=== PATIENT | male | born 1975 | race Caucasian/White ===

== ENCOUNTER 2016-09-27 12:11 | Inpatient (IN) | payer MEDICAID ==
--- NOTE | ~2016-09-27 | PN ---
Unit #: [id number] #: [id number] Patient: RADHA AGUILAR [id number] [facility] [address] [place] [address] [id number] I MR#: [id number] NAME: RADHA AGUILAR ROOM: P180 Age: 41 Sex: M Admission Date: 09/27/2016 : 1975 Attending Physician: Yoandy Sheridan M.D. Admitting Physician: Yoandy Sheridan M.D. Primary Care Physician: Primary Care Physician Jackeline MONTES DE OCA NOTES DATE 09/30/2016 DISCUSSION Mr. Aguilar is a 41-year-old, white male who was seen today and chart was reviewed and case was discussed with the staff. He has been anxious, withdrawn and rather seclusive to himself. Meanwhile, he has been cooperative with treatment recommendations and has been taking medications and tolerating them fairly well with no reported side effects. MENTAL STATUS EXAM Middle-aged white male who was casually dressed with fair personal hygiene, appears to be in no acute distress or discomfort. He was awake and alert on interaction with intact orientation to time, place and person. His mood was anxious with congruent affect. His speech was slow and goal directed. He denies any suicidal or homicidal ideation. His insight and judgement remains slightly impaired. TREATMENT PLAN We will continue him on his current medications and treatment protocol. We will monitor his response to the medications and will make further adjustments as needed. Dictated by... Alphonse Whitehead/jameson TD: 10/01/2016 02:10 JOB #: [id number] Unit #: [id number] #: [id number] Patient: RADHA AGUILAR HIRAL PROGRESS NOTES X Yoandy Sheridan MD PROGRESS NOTE
--- NOTE | ~2016-09-27 | PN ---
Unit #: [id number] #: [id number] Patient: RADHA AGUILAR [id number] [facility] [address] [place] [address] [id number] I MR#: [id number] NAME: RADHA AGUILAR ROOM: 80 Age: 41 Sex: M Admission Date: 09/27/2016 : 1975 Attending Physician: Yoandy Sheridan M.D. Admitting Physician: Yoandy Sheridan M.D. Primary Care Physician: Primary Care Physician Jackeline BLACKMAN PROGRESS NOTES DATE September 29, 2016 DISCUSSION Mr. Aguilar is a 41-year-old white male, who was seen today and chart was reviewed and the case was discussed with the staff. He has been anxious, withdrawn, and rather seclusive to himself. Meanwhile, he has been cooperative with the treatment recommendations and he has been taking the medications and tolerating them fairly well. MENTAL STATUS EXAMINATION Middle-aged white male, who was casually dressed with fair personal hygiene and appears to be in no acute distress or discomfort. He was awake and alert on interaction with intact orientation. His mood is anxious and depressed with a congruent affect. His speech is slow and goal-directed. He denies any suicidal or homicidal ideations. His insight and judgment remain slightly impaired. TREATMENT PLAN 1. We will continue him on his current medications and treatment protocol, and will monitor his response to the medications, and make further adjustments as needed. 2. We will continue to followup. Dictated by... Alphonse Whitehead/monique TD: 09/30/2016 08:17 JOB #: [id number] Unit #: [id number] #: [id number] Patient: RADHA AGUILAR PROGRESS NOTES X Yoandy Sheridan MD PROGRESS NOTE
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
--- NOTE | ~2016-09-27 | HP ---
Unit #: [id number] #: [id number] Patient: RADHA AGUILAR [id number] [facility] [address] [place] [address] [id number] I MR#: [id number] NAME: RADHA AGUILAR ROOM: P180 Age: 41 Sex: M Admission Date: 09/27/2016 : 1975 Attending Physician: Yoandy Sheridan M.D. Admitting Physician: Yoandy Sheridan M.D. Primary Care Physician: Primary Care Physician No HISTORY AND PHYSICAL HISTORY OF PRESENT ILLNESS Ms. Aguilar is a 41 year old admitted to [facility] because of his continued abuse of alcohol. He has had other admissions to this facility for treatment of the same. PAST MEDICAL HISTORY 1. Long history of alcohol abuse. 2. High blood pressure. PAST SURGICAL HISTORY Nothing reported. ALLERGIES No known drug allergies. SOCIAL HISTORY Smokes 2 packs per day. Drinks up to a case of been on a daily basis and denies illicit drug use. FAMILY HISTORY Medically noncontributory. REVIEW OF SYSTEMS CONSTITUTIONAL: No fever or chills. HEENT: Denies any sore throat, ear pain or runny nose. CARDIOVASCULAR: Denies chest pain, irregular heart rhythm or palpitations. CHEST: Denies shortness of breath or cough. No hemoptysis. GASTROINTESTINAL: Denies nausea, vomiting, diarrhea or chronic constipation. ENDOCRINE: Denies history of increased thirst or urination. No recent significant weight loss or gain. GENITOURINARY: Denies dysuria, frequency, or hematuria. SKIN: Denies any rashes. HEMATOLOGIC: Denies history of increased bleeding or bruising. MUSCULOSKELETAL: Denies any hot, swollen joints. No generalized muscle pain. NEUROLOGIC: Denies problems with vision or speech. No frequent, severe headaches. No numbness, tingling or weakness in any extremities. Denies loss of bladder or bowel control. CURRENT MEDICATIONS 1. Detox protocol. 2. Tenormin 25 mg q. day. Unit #: [id number] #: [id number] Patient: RADHA AGUILAR 3. Geodon 60 mg q.h.s. 4. BuSpar 15 mg b.i.d. PHYSICAL EXAMINATION GENERAL: Alert, well nourished. No apparent distress. VITAL SIGNS: Blood pressure 124/88, heart rate 100, respirations 16, and temperature 98.6. WEIGHT: 164. HEIGHT: 5 feet 8 inches. SKIN: Warm and dry without rash or lesion. HEENT: Normocephalic. TMs not viewed. Oral and nasal passages clear. Conjunctivae clear. PERRLA. EOMs intact. NECK: Supple without lymphadenopathy or thyromegaly. HEART: Regular rate and rhythm without murmur. LUNGS: Clear. ABDOMEN: Soft, nontender. : Not done. EXTREMITIES: No evidence of cyanosis, clubbing or edema. Moves all without focal deficit. NEUROLOGICAL: Grossly within normal limits. Cranial Nerves: II: Visual hart are intact. III, IV AND : Extraocular movements are intact. Pupils are equal, round and reactive to light. V: Facial sensation is grossly normal. VII: Facial movements and expression are normal. VIII: Auditory acuity grossly intact. IX, X: Uvula is midline. Phonation is normal. XI: Patient shrugs shoulders and turns head normally. XII: Tongue protrudes in the midline. Sensory and Motor Function: Sensory and motor sensation is grossly normal. Motor: moves all extremities well. Coordination: Gait is normal. Deep Tendon Reflexes: Intact. IMPRESSION Psychiatric admission. RECOMMENDATIONS PSYCHIATRIC: Per psychiatrist. MEDICAL: I see no contraindication to participate in this facility's activities. MEDICAL PROGNOSIS Good. MEDICAL CONDITION Stable. Dictated by... Swathi Schmitz P.A.-C. for Alphonse De La Vega/valerie TD: 09/28/2016 09:52 JOB #: [id number] Unit #: [id number] #: [id number] Patient: RADHA AGUILAR HISTORY AND PHYSICAL X Swathi Schmitz HISTORY AND PHYSICAL
--- NOTE | ~2016-09-27 | PN ---
Unit #: [id number] #: [id number] Patient: RADHA AGUILAR [id number] [facility] [address] [place] [address] [id number] MR#: [id number] NAME: RADHA AGUILAR ROOM: [facility] Age: 41 Sex: M Admission Date: 09/27/2016 : 1975 Attending Physician: Yoandy Sheridan M.D. Admitting Physician: Yoandy Sheridan M.D. Primary Care Physician: Primary Care Physician Jackeline MONTES DE OCA NOTES DATE OF SERVICE 09/27/2016 DISCUSSION Mr. Aguilar is a 41-year-old white male who was seen today. Chart was reviewed and case was discussed with staff. He was seen to be anxious, withdrawn, restless, and reports persistent depressive symptoms. Meanwhile, he has been taking the medications and tolerating them fairly well with no reported side effects. MENTAL STATUS EXAMINATION Middle-aged white male who is casually dressed with fair personal hygiene, appears to be in slight distress and discomfort. He was awake and alert on interaction with intact orientation. His mood is anxious and depressed with congruent affect. His speech is slow and goal-directed. He reports having suicidal ideation but denies any homicidal ideations and also denies any auditory or visual hallucinations. His insight and judgment remain slightly impaired. TREATMENT PLAN 1. We will continue him on his current medications and treatment protocol. We will monitor his response to the medications and make further adjustments as needed. 2. We will continue to follow up. Dictated by... Alphonse Whitehead/valerie TD: 09/29/2016 09:52 JOB #: [id number] Unit #: [id number] #: [id number] Patient: RADHA AGUILAR PEAELOY PROGRESS NOTES X Yoandy Sheridan MD PROGRESS NOTE
--- NOTE | ~2016-09-27 | DS ---
Unit #: [id number] #: [id number] Patient: [facility]AV[facility] [id number] [facility] [address] [place] [address] [id number] I MR#: [id number] NAME: RADHA XAVIER ROOM: [facility] Age: 41 Sex: M Admission Date: 09/27/2016 : 1975 Discharge Date: Attending Physician: Yoandy Sheridan M.D. Primary Care Physician: Primary Care Physician No DISCHARGE SUMMARY IDENTIFYING DATA Mr. Xavier is a 41-year-old single white male who is known to us from previous encounter, was self-referred back to the hospital. DISCHARGE DIAGNOSES Psychiatric: Alcohol dependence, moderate and acute withdrawals; bipolar disorder, most recent episode depressed, recurrent, moderate, without psychotic features. Medical: Hypertension. Stressors: Moderate psychosocial stressors. HISTORY OF PRESENT ILLNESS Please see initial psychiatric evaluation for details. PAST PSYCHIATRIC HISTORY Please see initial psychiatric evaluation for details. PAST MEDICAL HISTORY Please see initial psychiatric evaluation for details. HOSPITAL COURSE The patient was [facility] and was oriented to the hospital environment. Routine p.r.n. medications were initiated, and he was started back on his home medications and medications were adjusted and he was closely monitored. He was taking the medications regularly and was tolerating them fairly well and was able to come out of the detox without any complications and was willing to continue treatment on an outpatient basis and as such, it was decided that he will be discharged home and will continue treatment on an outpatient basis. DISCHARGE MEDICATIONS Geodon 60 mg a day for bipolar and BuSpar 15 mg b.i.d. for anxiety. DISCHARGE CONDITION Stable. PROGNOSIS Fair. Dictated by... Yoandy Sheridan M.D. Unit #: [id number] #: [id number] Patient: RADHA XAVIER IAA/modl TD: 10/01/2016 07:25 JOB #: [id number] DISCHARGE SUMMARY X Yoandy Sheridan MD X DISCHARGE SUMMARY
[2016-09-27 16:43] LABS: URINE APPEARANCE CLEAR; URINE BILIRUBIN NEG (NEG); URINE BLOOD NEG (NEG); URINE COLOR YELLOW; URINE GLUCOSE NEG (NEG); URINE KETONE NEG (NEG); URINE LEUKOCYTE ESTERASE NEG (NEG); URINE NITRATE NEG (NEG); URINE PROTEIN NEG (NEG); URINE SPECIFIC GRAVITY 1.016 (1.003-1.035); URINE UROBILINOGEN 0.2 MG/DL (NEG)
[2016-09-28 09:58] LABS: THYROID STIMULATING HORMONE 0.75 uIU/ml (0.34-5.60)
[2016-09-28 10:07] LABS: FREE THYROXIN (T4) 0.85 ng/dL (0.58-1.64)
== END 2016-10-01 09:30 | DRG 897 ==
LOC: P1E 12:11
PROVIDERS: Psychiatry & Neurology Psychiatry
PROC: HZ2ZZZZ Detoxification Services for Substance Abuse Treatment (ICD-10-PCS; principal; 2016-09-27)
DX: F10.239 Alcohol dependence with withdrawal, unspecified (principal); F31.32 Bipolar disorder, current episode depressed, moderate; I10 Essential (primary) hypertension; F17.210 Nicotine dependence, cigarettes, uncomplicated
CPT/HCPCS: 81003; 84439; 84443; 86592